=== PATIENT | female | born 1990 ===

== ENCOUNTER 2025-01-10 15:31 | Emergency (ER) | payer OTHER ==
--- NOTE | 2025-01-10 15:55 | ED ---
General Adult HPI - General Chief complaint: Headache Stated complaint: Migraines Time Seen by Provider: 01/10/25 15:54 Source: patient Mode of arrival: ambulatory Limitations: no limitations - History of Present Illness Initial comments: Patient presents to the ED complaining of having a left-sided headache since yesterday with associated left facial tingling and dizziness. Patient states that she has a history of migraine headaches, and she states that she has had similar headaches multiple times over the past several years. Patient states that she typically does not have facial tingling with her symptoms though. Patient also states that she has never had head imaging performed in the past. Patient states that she was prescribed sumatriptan for headaches, which she took today without much relief. Patient denies taking any other medications for her headache/symptoms today. Patient denies head trauma or injury, sudden onset of headache, LOC, neck pain or stiffness, fever or chills, focal weakness, visual changes, speech difficulty, chest pain or pressure, dyspnea, palpitations, syncope, nausea/vomiting/diarrhea, or any other symptoms or complaints. Patient states that her headache is made worse by bright lights and loud noises. - Related Data Allergies Allergy/AdvReac Type Severity Reaction Status Date / Time No Known Allergies Allergy Verified 01/10/25 15:48 Review of Systems ROS Statement: Those systems with pertinent positive or pertinent negative responses have been documented in the HPI. ROS Other: All systems not noted in ROS Statement are negative. Past Medical History Past Medical History: No Reported History History of Any Multi-Drug Resistant Organisms: None Reported Additional Past Surgical History / Comment(s): bladder surgery Past Psychological History: No Psychological Hx Reported Smoking Status: Never smoker Past Alcohol Use History: None Reported Past Drug Use History: None Reported General Exam Limitations: no limitations General appearance: alert Head exam: Present: atraumatic, normocephalic Eye exam: Present: normal appearance, PERRL, EOMI ENT exam: Present: mucous membranes moist Neck exam: Present: other (No nuchal rigidity or meningeal signs are present on exam). Absent: tenderness, meningismus Respiratory exam: Present: normal lung sounds bilaterally. Absent: respiratory distress, wheezes, rales, rhonchi, stridor Cardiovascular Exam: Present: regular rate, normal rhythm, normal heart sounds, other (Normal radial pulses bilaterally) GI/Abdominal exam: Present: soft. Absent: distended, tenderness, guarding Extremities exam: Present: full ROM. Absent: tenderness, pedal edema Neurological exam: Present: alert, oriented X3, CN II-XII intact. Absent: motor sensory deficit Skin exam: Present: warm, dry, normal color Course Vital Signs 01/10/25 15:44 Temperature 98.3 F Pulse Rate 66 Respiratory 17 Rate Blood Pressure 151/90 O2 Sat by Pulse 100 Oximetry - Reevaluation(s) Reevaluation #1: 01/10/25 18:03 Patient states that her headache/symptoms have now improved, and she denies development of any new symptoms while in the ED. Patient continues to have a normal neurological exam. Patient is aware of her negative head imaging report, and she feels comfortable being discharged home at this time. She was counseled about headaches/migraines, and she was clearly explained return and follow-up instructions. She was instructed to follow-up closely with her primary care provider. She feels comfortable with this plan. Medical Decision Making - Medical Decision Making Was pt. sent in by a medical professional or institution (, PA, [employer] OFFICER CHIEF, urgent care, hospital, or halfway...) When possible be specific @ -No Did you speak to anyone other than the patient for history (EMS, parent, family, police, friend...)? What history was obtained from this source @ -No Did you review nursing and triage notes (agree or disagree)? Why? @ -I reviewed and agree with nursing and triage notes Were old charts reviewed (outside hosp., previous admission, EMS record, old EKG, old radiological studies, urgent care reports/EKG's, halfway records)? Report findings @ -No old charts were reviewed Differential Diagnosis (chest pain, altered mental status, abdominal pain women, abdominal pain men, vaginal bleeding, weakness, fever, dyspnea, syncope, headache, dizziness, GI bleed, back pain, seizure, CVA, palpatations, mental health, musculoskeletal)? @ -Headache, migraine headache, cluster headache, tension headache, intracranial hemorrhage, sinusitis, intracranial mass, anxiety, viral illness, this is not meant to be a complete list. EKG interpreted by me (3pts min.). @ -None done X-rays interpreted by me (1pt min.). @ -None done CT interpreted by me (1pt min.). @ -Noncontrast head CT was reviewed myself and shows no acute intracranial abnormality. I agree with the radiologist's interpretation as above. U/S interpreted by me (1pt. min.). @ -None done What testing was considered but not performed or refused? (CT, X-rays, U/S, labs)? Why? @ -None What meds were considered but not given or refused? Why? @ -None Did you discuss the management of the patient with other professionals (professionals i.e. , PA, [employer] OFFICER CHIEF, lab, RT, psych nurse, medical social worker, hooker up, teacher, ict customer support officer, case aide)? Give summary @ -No Was smoking cessation discussed for >3mins.? @ -No Was critical care preformed (if so, how long)? @ -No Were there social determinants of health that impacted care today? How? (Homelessness, low income, unemployed, alcoholism, drug addiction, transportation, low edu. Level, literacy, decrease access to med. care, detention, rehab)? @ -No Was there de-escalation of care discussed even if they declined (Discuss DNR or withdrawal of care, Hospice)? DNR status @ -No What co-morbidities impacted this encounter? (DM, HTN, Smoking, COPD, CAD, Cancer, CVA, ARF, Chemo, Hep., AIDS, mental health diagnosis, sleep apnea, morbid obesity)? @ -None Was patient admitted / discharged? Hospital course, mention meds given and route, prescriptions, significant lab abnormalities, going to OR and other pertinent info. @ -Patient reports having a history of migraine headaches. Patient has a normal neurological exam in the ED. Patient's head CT is negative. Patient reports improvement in her symptoms with the medications that she was given in the ED. I do not suspect an emergent medical condition at this time. Will discharge patient home at this time. She was counseled about headaches/migraines, and she was clearly explained return and follow-up instructions. She was instructed to follow-up closely with her primary care provider. She feels comfortable with this plan. Undiagnosed new problem with uncertain prognosis? @ -No Drug Therapy requiring intensive monitoring for toxicity (Heparin, Nitro, Insulin, Cardizem)? @ -No Were any procedures done? @ -No Diagnosis/symptom? @ -Migraine headache Acute, or Chronic, or Acute on Chronic? @ -Acute Uncomplicated (without systemic symptoms) or Complicated (systemic symptoms)? @ -Default Side effects of treatment? @ -No Exacerbation, Progression, or Severe Exacerbation? @ -No Poses a threat to life or bodily function? How? (Chest pain, [place], [place], pneumonia, PE, COPD, DKA, ARF, appy, cholecystitis, CVA, Diverticulitis, Homicidal, Suicidal, threat to staff... and all critical care pts) @ -No - Radiology Data Noncontrast head CT: No acute intracranial process. Disposition Clinical Impression: Migraine headache Disposition: HOME SELF-CARE Condition: Stable Instructions (If sedation given, give patient instructions): Acute Headache (ED), Migraine Headache (ED) Additional Instructions: Return to the ER immediately should you develop new or worsening pain, vomiting, numbness or weakness, changes in your vision or speech, a fever, neck stiffness, or new or worsening symptoms. Follow-up closely with your primary care provider. Is patient prescribed a controlled substance at d/c from ED?: No Referrals: Nonstaff,Physician [Primary Care Provider] - 1-2 days Time of Disposition: 18:07
[2025-01-10] MEDS: SODIUM CHLORIDE 0.9% 1,000 ML IV STA (16:20)
[2025-01-10] MEDS: METOCLOPRAMIDE 5 MG/ML 2 ML VIAL IVP STA (16:21)
[2025-01-10] MEDS: diphenhydrAMINE 50 MG/ML 1 ML VIAL IVP STA (16:21)
--- NOTE | 2025-01-10 17:32 | CT ---
EXAMINATION TYPE: CT brain wo con DATE OF EXAM: 01/10/2025 5:06 PM COMPARISON: None available. CLINICAL INDICATION: Female, 34 years old with history of Headache, Headache. TECHNIQUE: Brain: Axial CT images of the brain were obtained with coronal and sagittal reformats created and rev iewed. Contrast used: None. Oral contrast used: None. CT DLP: 1098.4 mGycm, Automated exposure control for dose reduction was used. FINDINGS: Brain: Extra-axial spaces: No abnormal extra-axial fluid collections. Ventricular system: Within normal limits Cerebral parenchyma: No acute intraparenchymal hemorrhage or mass effect. The thornton-white junction is well differentiated. Cerebellum: Unremarkable. Mass effect: No evidence of midline shift. Intracranial vasculature: unremarkable Soft tissues: Normal. Calvarium/osseous structures: No depressed skull fracture. Paranasal sinuses and mastoid air cells: Mild scattered paranasal sinus disease. Visualized orbits: Orbital contents are intact. IMPRESSION: No acute intracranial process. [facility], , 01/10/2025 5:30 PM
[2025-01-10 18:04] VITALS: BP 104/71; PULSE 82; RESP 16; TEMP 98
== END 2025-01-10 18:12 | disposition home or self-care (01) ==
LOC: EC 15:31
DX: G43.909 Migraine, unspecified, not intractable, without status migrainosus (principal)
CPT/HCPCS: 70450; 99284; 96374; 96375; 96361; J1200; J2765

== ENCOUNTER 2025-01-19 06:52 | Emergency (ER) | payer OTHER ==
[2025-01-19 07:10] VITALS: PULSE 78
--- NOTE | 2025-01-19 07:36 | ED ---
General Adult HPI - General Chief complaint: Headache Stated complaint: headache,numbess,nausea Time Seen by Provider: 01/19/25 07:01 Source: patient, RN notes reviewed Mode of arrival: ambulatory Limitations: no limitations - History of Present Illness Initial comments: Patient is a 34-year-old female present to the emergency department with concern with headache. Patient does have chronic similar headaches. Headache started around 3 AM and is progressively worsened since that time. Headache is right- sided. Patient does have photophobia. Patient was in the emergency department a couple weeks ago with similar symptoms. No nausea or vomiting. - Related Data Allergies Allergy/AdvReac Type Severity Reaction Status Date / Time No Known Allergies Allergy Verified 01/10/25 15:48 Review of Systems ROS Statement: Those systems with pertinent positive or pertinent negative responses have been documented in the HPI. ROS Other: All systems not noted in ROS Statement are negative. Constitutional: Denies: fever Eyes: Reports: as per HPI. Denies: eye pain ENT: Denies: ear pain Gastrointestinal: Denies: nausea, vomiting Neurological: Reports: headache. Denies: weakness, confusion Past Medical History Past Medical History: No Reported History Additional Past Medical History / Comment(s): miagraines History of Any Multi-Drug Resistant Organisms: None Reported Additional Past Surgical History / Comment(s): bladder surgery Past Psychological History: No Psychological Hx Reported Smoking Status: Never smoker Past Alcohol Use History: None Reported Past Drug Use History: None Reported General Exam Limitations: no limitations General appearance: alert, in no apparent distress Head exam: Present: normocephalic Eye exam: Present: normal appearance, PERRL, EOMI Neck exam: Present: normal inspection Respiratory exam: Present: normal lung sounds bilaterally Cardiovascular Exam: Present: regular rate, normal rhythm GI/Abdominal exam: Present: soft. Absent: tenderness Back exam: Present: normal inspection Neurological exam: Present: alert, oriented X3, CN II-XII intact. Absent: motor sensory deficit Expanded Neurological exam: Present: protecting the airway Speech: Present: fluid speech Cranial nerves: EOM's Intact: Normal Sensory exam: Upper Extremity Light Touch: Normal, Lower Extremity Light Touch: Normal Motor strength exam: RUE: 5, LUE: 5, RLE: 5, LLE: 5 Eye Response: (4) open spontaneously Motor Response: (6) obeys commands Verbal Response: (5) oriented Psychiatric exam: Present: normal affect, normal mood Skin exam: Present: normal color Course Vital Signs 01/19/25 07:07 Temperature 98.0 F Pulse Rate 78 Respiratory 18 Rate Blood Pressure 122/85 O2 Sat by Pulse 99 Oximetry Medical Decision Making - Medical Decision Making Was pt. sent in by a medical professional or institution (, [place], COUNTY COURT JUDGE, urgent care, hospital, or skilled nursing...) When possible be specific @ -No Did you speak to anyone other than the patient for history (EMS, parent, family, police, friend...)? What history was obtained from this source @ -No Did you review nursing and triage notes (agree or disagree)? Why? @ -I reviewed and agree with nursing and triage notes Were old charts reviewed (outside hosp., previous admission, EMS record, old EKG, old radiological studies, urgent care reports/EKG's, skilled nursing records)? Report findings @ -No old charts were reviewed Differential Diagnosis (chest pain, altered mental status, abdominal pain women, abdominal pain men, vaginal bleeding, weakness, fever, dyspnea, syncope, headache, dizziness, GI bleed, back pain, seizure, CVA, palpatations, mental health, musculoskeletal)? @ -Differential Headache: Migraine, tension, cluster, carbon monoxide, central venous thrombosis, pension karma temporal arteritis, acute closure glaucoma, intercranial hemorrhage, mastoiditis, sinusitis, head injury, this is not meant to be an all-inclusive list. EKG interpreted by me (3pts min.). @ -As above X-rays interpreted by me (1pt min.). @ -None done CT interpreted by me (1pt min.). @ -None done U/S interpreted by me (1pt. min.). @ -None done What testing was considered but not performed or refused? (CT, X-rays, U/S, labs)? Why? @ -Consider CT scan of the brain however patient just had this done recently and has history of chronic similar headaches What meds were considered but not given or refused? Why? @ -None Did you discuss the management of the patient with other professionals (p rofessionals i.e. , PA, COUNTY COURT JUDGE, lab, RT, psych nurse, high school social studies teacher, circular knitter helper, teacher, licensed mortgage loan officer, top case assembler)? Give summary @ -No Was smoking cessation discussed for >3mins.? @ -No Was critical care preformed (if so, how long)? @ -No Were there social determinants of health that impacted care today? How? (Homelessness, low income, unemployed, alcoholism, drug addiction, transportation, low edu. Level, literacy, decrease access to med. care, half-way, rehab)? @ -No Was there de-escalation of care discussed even if they declined (Discuss DNR or withdrawal of care, Hospice)? DNR status @ -No What co-morbidities impacted this encounter? (DM, HTN, Smoking, COPD, CAD, Cancer, CVA, ARF, Chemo, Hep., AIDS, mental health diagnosis, sleep apnea, morbid obesity)? @ -None Was patient admitted / discharged? Hospital course, mention meds given and route, prescriptions, significant lab abnormalities, going to OR and other pertinent info. @ -Patient presents with chronic headache. Patient states medications from previous visit worked well. Patient again is provided Reglan and Benadryl IM. On reevaluation patient feels much better only mild discomfort. Patient updated. Undiagnosed new problem with uncertain prognosis? @ -No Drug Therapy requiring intensive monitoring for toxicity (Heparin, Nitro, Insulin, Cardizem)? @ -No Were any procedures done? @ -No Diagnosis/symptom? @ -Cephalgia Acute, or Chronic, or Acute on Chronic? @ -Acute Uncomplicated (without systemic symptoms) or Complicated (systemic symptoms)? @ -Default Side effects of treatment? @ -No Exacerbation, Progression, or Severe Exacerbation? @ -No Poses a threat to life or bodily function? How? (Chest pain, [place], [place], pneumonia, PE, COPD, DKA, ARF, appy, cholecystitis, CVA, Diverticulitis, Homicidal, Suicida l, threat to staff... and all critical care pts) @ -No Disposition Clinical Impression: Headache Disposition: HOME SELF-CARE Condition: Stable Instructions (If sedation given, give patient instructions): Acute Headache (ED) Additional Instructions: Please do follow-up with your primary care physician in the next couple days for recheck. Return for fever, weakness, confusion, worsening or changing symptoms or any other concerns. Is patient prescribed a controlled substance at d/c from ED?: No Referrals: Nonstaff,Physician [Primary Care Provider] - 1-2 days Forms: Area PCPs Time of Disposition: 09:12
[2025-01-19] MEDS: diphenhydrAMINE 50 MG/ML 1 ML VIAL IM STA (07:43)
[2025-01-19] MEDS: METOCLOPRAMIDE 5 MG/ML 2 ML VIAL IM STA (07:44)
[2025-01-19 09:19] VITALS: BP 105/70; RESP 20; TEMP 97.9
== END 2025-01-19 09:23 | disposition home or self-care (01) ==
LOC: EC 06:52
DX: R51.9 Headache, unspecified (principal)
CPT/HCPCS: 99283; 96372; J1200; J2765